=== PATIENT | female | born 1965 | race Caucasian/White ===

== ENCOUNTER → 2017-11-02 | Outpatient (CLI) | payer BC ==
[~2017-11-02] MED LIST: ACYC-1 PO; ACYC-50 PO; AMIT-108 PO; AMOX-559 PO; AMOX500T10 PO; AZIT-1 PO; BUPR-126 PO; BUS5 PO; CIPR-326 PO; CITA-141 PO; CYCL10TA29 PO; DESV50TA9 PO; DIA5 PO; FEXO180T74 PO; FLU60SYR30 IM ONLY; KET10 PO; LEVO750T44 PO; LIDO700A29 TD; LOM PO; LOR5/325 PO; LORA-629 PO; MELO-150 PO; MELO-207 PO; MUP2T TOP; NIC10R INH; NICO1PAT86 TD; ONDA4TAB9 PO; PER PO; PRO25 IV; SULF-198 PO; TAMS0.4C25 PO; TRAM-420 PO; TRAZ-156 PO; VENL150C61 PO; VENL225T5 PO
== END ==
LOC: LAB 11:34
PROVIDERS: ATTEND Emergency Medicine
DX: Z02.9 Encounter for administrative examinations, unspecified (principal)

== ENCOUNTER → 2017-11-02 | Outpatient (CLI) | payer BC ==
[2017-11-02 09:09] LABS: PLATELET COUNT, AUTOMATED 384 K/uL (150-450)
[2017-11-02 09:27] LABS: LDL CHOLESTEROL 95 mg/dl
== END ==
LOC: LAB 08:44
PROVIDERS: ATTEND Emergency Medicine
DX: Z00.00 Encounter for general adult medical examination without abnormal findings (principal)
CPT/HCPCS: 36415; 82040; 82247; 82310; 82374; 82435; 82465; 82565; 82947; 83718; 84075; 84132; 84155; 84295; 84450; 84460; 84478; 84520; 85025

== ENCOUNTER 2017-12-14 19:23 | Emergency (ER) | payer BC ==
[2017-12-14] MEDS ORDERED: KETOROLAC 30 MG/ML VIAL IVP ONE (19:45)
--- NOTE | 2017-12-14 19:45 | ER Report ---
History and Physical Time Seen By MD: 19:29 HPI/ROS CHIEF COMPLAINT: ankle and leg pain HISTORY OF PRESENT ILLNESS: This is a 52 year old female. She twisted her ankle and then started having severe pain in her ankle and into her calf. Significant delayed onset from the injury, now very pronounced even with light touch. Cannot move the ankle much because of pain. Some pain over the medial and lateral malleolus. Some pain up in the thigh and hip as well. Was wearing a boot earlier today, worsened when removed the boot. Has some numbness into the toes. No history of gout, but does have history of arthritis. Allergies: Coded Allergies: codeine (Verified Allergy, Mild, ITCHING, RASH, 11/25/16) morphine (Unverified Allergy, Unknown, 11/25/16) hydromorphone (Verified Adverse Reaction, Mild, HIVES, 11/25/16) Home Meds Active Scripts Ketorolac Tromethamine (KETOROLAC TROMETHAMINE) 10 Mg Tab, 10 MG PO Q6H Y for PAIN, #12 TAB 0 Refills Prov:CONNOR ROWLAND MD 12/14/17 Oxycodone Hcl/Acetaminophen (PERCOCET 5-325 MG TABLET) 1 Each Tablet, 1 EACH PO Q4H Y for PAIN, #12 TAB 0 Refills Prov:CONNOR ROWLAND MD 12/14/17 Cyclobenzaprine Hcl (CYCLOBENZAPRINE HCL) 10 Mg Tablet, 10 MG PO Q8H Y for MUSCLE SPASMS, #20 TAB 0 Refills Prov:CONNOR ROWLAND MD 12/14/17 Venlafaxine Hcl (VENLAFAXINE HCL ER) 225 Mg Tab.er.24, 225 MG PO QDAY, #90 TAB 3 Refills Prov:ANA MUNOZ MD 11/02/17 Acyclovir (ACYCLOVIR) 400 Mg Tablet, 400 MG PO BID, #60 TAB 11 Refills Prov:ANA MUNOZ MD 11/02/17 Amoxicillin 500 Mg Tab (AMOXICILLIN 500 MG TAB) 500 Mg Tablet, 1 TAB PO BID, # 20 TAB Prov:ANA MUNOZ MD 11/02/17 Amitriptyline Hcl (AMITRIPTYLINE HCL) 50 Mg Tablet, 50 MG PO QHS, #30 TAB Take 0.5 to 1 tab at night an hour before bedtime. Discontinue if daytime sleepiness Prov:ANA MUNOZ MD 11/02/17 Bupropion Hcl (WELLBUTRIN SR) 150 Mg Tablet.er, 150 MG PO QDAY, #60 TAB 11 Refills Take 1 daily for 3 days then twice daily after that Prov:ANA MUNOZ MD 11/02/17 Reviewed Nurses Notes: Yes Hx Smoking: Yes (1/2 PACK PER DAY) Smoking Status: Current: Every Day Smoker Exposure to Second Hand Smoke?: Yes Hx Alcohol Use: Yes Constitutional Vital Sign - Last 24 Hours 12/14/17 12/14/17 12/14/17 12/14/17 19:36 19:38 19:41 20:23 Temp 98.4 Pulse 109 103 98 Resp 20 B/P (MAP) 130/96 (107) 130/96 Pulse Ox 100 97 O2 Delivery Room Air 12/14/17 12/14/17 12/14/17 12/14/17 20:30 20:50 21:00 21:05 Pulse 87 B/P (MAP) 111/92 (98) 121/99 (106) Pulse Ox 99 96 12/14/17 12/14/17 12/14/17 12/14/17 21:20 21:30 21:35 21:40 Pulse 89 87 88 B/P (MAP) 133/86 (102) Pulse Ox 94 91 91 Physical Exam General appearance: Patient is alert. Acute distress due to pain. Musculoskeletal: Right ankle shows mild swelling. There is no obvious deformity. No bruising. Medial malleolus is tender to palpation. Lateral malleolus is tender to palpation, but less so than medial. Forefoot is nontender , no tenderness over the head of the fifth metatarsal. No pain with palpation of the calcaneus. Has pain in the calf. Cannot dorsiflex or plantarflex the foot without severe pain. Minimal pain in the knee. Some pain in the hip lateral and anterior. Weight bearing: Weight bearing not tested due to pain. Neurologic: The patient has normal sensation. Active range of motion is intact, but with pain. Cardiovascular: Normal dorsalis pedis and posterior tibialis pulses. Normal capillary refill. Skin: No rash. No skin breakdown. DIFFERENTIAL DIAGNOSIS: After history and physical exam differential diagnosis was considered for ankle injury including sprain, fracture, dislocation and soft tissue injury. Also concerning for possible gout. Because of pain into the leg, will also rule out blood clot. Medical Decision Making Data Points Result Diagram: 12/14/17195012/14/171950 Laboratory Hematology Test 12/14/17 19:51 Red Blood Count 4.58 M/uL (4.17-5.56) Mean Corpuscular Volume 88.0 fL (80.0-96.0) Mean Corpuscular Hemoglobin 31.0 pg (26.0-33.0) Mean Corpuscular Hemoglobin Concent 35.2 g/dL (32.0-36.0) Red Cell Distribution Width 14.4 % (11.5-14.5) Mean Platelet Volume 8.4 fL (7.2-11.1) Neutrophils (%) (Auto) 59.4 % (39.4-72.5) Lymphocytes (%) (Auto) 30.0 % (17.6-49.6) Monocytes (%) (Auto) 8.3 % (4.1-12.4) Eosinophils (%) (Auto) 1.9 % (0.4-6.7) Basophils (%) (Auto) 0.4 % (0.3-1.4) Nucleated RBC Relative Count (auto) 0.0 /100WBC Neutrophils # (Auto) 5.3 K/uL (2.0-7.4) Lymphocytes # (Auto) 2.7 K/uL (1.3-3.6) Monocytes # (Auto) 0.7 K/uL (0.3-1.0) Eosinophils # (Auto) 0.2 K/uL (0.0-0.5) Basophils # (Auto) 0.0 K/uL (0.0-0.1) Nucleated RBC Absolute Count (auto) 0.00 K/uL Erythrocyte Sedimentation Rate 20 mm/HOUR (0-30) Sodium Level 136 mmol/L (137-145) Potassium Level 4.1 mmol/L (3.5-5.0) Chloride Level 100 mmol/L (98-107) Carbon Dioxide Level 25 mmol/L (22-31) Blood Urea Nitrogen 10 mg/dl (7-18) Creatinine 0.90 mg/dl (0.52-1.04) Glomerular Filtration Rate Calc > 60.0 Random Glucose 79 mg/dl (75-110) Uric Acid 4.3 mg/dl (2.5-7.5) Calcium Level 9.5 mg/dl (8.4-10.2) Total Bilirubin 0.3 mg/dl (0.2-1.3) Aspartate Amino Transf (AST/SGOT) 42 U/L (0-35) Alanine Aminotransferase (ALT/SGPT) 33 U/L (0-56) Alkaline Phosphatase 93 U/L (0-126) C-Reactive Protein 1.0 mg/dl (<1.0) Total Protein 7.6 gm/dl (6.3-8.2) Albumin 4.3 g/dl (3.5-5.0) Chemistry Test 12/14/17 19:51 White Blood Count 8.9 k/uL (4.5-11.0) Red Blood Count 4.58 M/uL (4.17-5.56) Hemoglobin 14.2 g/dL (12.0-16.0) Hematocrit 40.3 % (34.0-47.0) Mean Corpuscular Volume 88.0 fL (80.0-96.0) Mean Corpuscular Hemoglobin 31.0 pg (26.0-33.0) Mean Corpuscular Hemoglobin Concent 35.2 g/dL (32.0-36.0) Red Cell Distribution Width 14.4 % (11.5-14.5) Platelet Count 317 K/uL (150-450) Mean Platelet Volume 8.4 fL (7.2-11.1) Neutrophils (%) (Auto) 59.4 % (39.4-72.5) Lymphocytes (%) (Auto) 30.0 % (17.6-49.6) Monocytes (%) (Auto) 8.3 % (4.1-12.4) Eosinophils (%) (Auto) 1.9 % (0.4-6.7) Basophils (%) (Auto) 0.4 % (0.3-1.4) Nucleated RBC Relative Count (auto) 0.0 /100WBC Neutrophils # (Auto) 5.3 K/uL (2.0-7.4) Lymphocytes # (Auto) 2.7 K/uL (1.3-3.6) Monocytes # (Auto) 0.7 K/uL (0.3-1.0) Eosinophils # (Auto) 0.2 K/uL (0.0-0.5) Basophils # (Auto) 0.0 K/uL (0.0-0.1) Nucleated RBC Absolute Count (auto) 0.00 K/uL Erythrocyte Sedimentation Rate 20 mm/HOUR (0-30) Glomerular Filtration Rate Calc > 60.0 Uric Acid 4.3 mg/dl (2.5-7.5) Calcium Level 9.5 mg/dl (8.4-10.2) Total Bilirubin 0.3 mg/dl (0.2-1.3) Aspartate Amino Transf (AST/SGOT) 42 U/L (0-35) Alanine Aminotransferase (ALT/SGPT) 33 U/L (0-56) Alkaline Phosphatase 93 U/L (0-126) C-Reactive Protein 1.0 mg/dl (<1.0) Total Protein 7.6 gm/dl (6.3-8.2) Albumin 4.3 g/dl (3.5-5.0) EKG/Imaging Imaging 3 views right ankle INDICATION: Right ankle pain for 2 days. COMPARISON: None Available FINDINGS: 3 views right ankle. No acute fracture. Previous avulsion off the medial malleolus. No dislocation or bony lesions. No appreciable degenerative changes. Soft tissues show mild swelling. No radiopaque foreign body. Mild callus cases of the distal Achilles tendon. IMPRESSION: 1. No acute osseous abnormality of the right ankle Report Dictated By: Jose Mchugh at 12/14/2017 8:32 PM Venous Doppler ultrasound right lower extremity Indication: Right lower leg pain.. Comparison: None Available Findings: Duplex Doppler and color flow imaging was performed. The common femoral, femoral, and popliteal veins are all patent and compressible with normal Doppler wave forms. There are normal responses to augmentation. The posterior tibial and peroneal veins are patent in the calf. The proximal greater saphenous vein is also normal. Subcutaneous tissues are unremarkable. IMPRESSION: 1. No evidence of deep venous thrombosis of the right lower extremity. Report Dictated By: Jose Mchugh at 12/14/2017 9:21 PM ED Course/Re-evaluation Clinical Indication for ER IV: IV Access ED Course After my initial evaluation, the patient was in significant pain. Started an IV and gave Toradol. Because of medication allergies, gave Percocet 5/325 oral dose. Because of worsening pain, gave Fentanyl 50mcg IV. Pain much improved. Images and ultrasound negative as noted above. Labs unremarkable. Discussed that this appears to be a sprain, but cannot rule out soft tissue tear or ligamentous injury/tear as well. Conservative treatment discussed. See instructions below. Follow-up with [facility] recommended. Decision to Disposition Date: Dec 14, 2017 Decision to Disposition Time: 21:49 Depart Departure Latest Vital Signs Vital Signs Date Time Temp Pulse Resp B/P (MAP) Pulse Ox O2 Delivery O2 Flow Rate FiO2 12/14/17 21:40 88 91 12/14/17 21:30 133/86 (102) 12/14/17 19:41 98.4 20 Room Air Impression: Primary Impression: Ankle sprain Condition: Improved Disposition: HOME OR SELF-CARE Referrals: ANA MUNOZ MD (PCP) New Scripts Ketorolac Tromethamine (KETOROLAC TROMETHAMINE) 10 Mg Tab 10 MG PO Q6H Y for PAIN, #12 TAB 0 Refills Prov: CONNOR ROWLAND MD 12/14/17 Oxycodone Hcl/Acetaminophen (PERCOCET 5-325 MG TABLET) 1 Each Tablet 1 EACH PO Q4H Y for PAIN, #12 TAB 0 Refills Prov: CONNOR ROWLAND MD 12/14/17 Cyclobenzaprine Hcl (CYCLOBENZAPRINE HCL) 10 Mg Tablet 10 MG PO Q8H Y for MUSCLE SPASMS, #20 TAB 0 Refills Prov: CONNOR ROWLAND MD 12/14/17 Patient Instructions: Ankle Sprain (ED) Additional Instructions: Toradol 10mg, one every 6 hours for the next 3 days. Percocet 5/325, one every 4 hours as needed for pain. Flexeril 10mg, one every 8 hours as needed for pain. Apply ice 20 minutes every 1-2 hours while awake. An SHANITA wrap can be used for compression to help reduce swelling. Rest the injured area, keep it elevated while at rest. Begin gentle range of motion exercises. Crutches with increasing weight bearing as the pain decreases. Please call and make a follow-up appointment with [facility]. Off work through the weekend. Problem Qualifiers Primary Impression: Ankle sprain Encounter type: initial encounter Involved ligament of ankle: unspecified ligament Laterality: right Qualified Codes: S93.401A - Sprain of unspecified ligament of right ankle, initial encounter CONNOR ROWLAND MD Dec 14, 2017 19:45
[2017-12-14] MEDS ORDERED: NS(*) 0.9% 1000 ML BAG 1,000 ML IV ONE (19:50)
[2017-12-14 20:03] LABS: PLATELET COUNT, AUTOMATED 317 K/uL (150-450)
[2017-12-14] MEDS ORDERED: fentaNYL CITR 100 MCG/2 ML AMP IVP ONE (20:15)
--- NOTE | 2017-12-14 20:37 | RADIOLOGY IMAGING REPORT ---
FACILITY: [facility] - [place] PATIENT NAME: Jens Norman : 1965 MR: [id number] V: [id number] EXAM DATE: ORDERING PHYSICIAN: CONNOR ROWLAND TECHNOLOGIST: Location: [facility] [place] Patient: Jens Norman : 1965 Visit/Account:[id number] Date of Sevice: 12/14/2017 3 views right ankle INDICATION: Right ankle pain for 2 days. COMPARISON: None Available FINDINGS: 3 views right ankle. No acute fracture. Previous avulsion off the medial malleolus. No dislocation or bony lesions. No appreciable degenerative changes. Soft tissues show mild swelling. No radiopaque fo reign body. Mild callus cases of the distal Achilles tendon. IMPRESSION: 1. No acute osseous abnormality of the right ankle Report Dictated By: Jose Mchugh at 12/14/2017 8:32 PM Report E-Signed By: Jose Mchugh at 12/14/2017 8:34 PM WSN:[id number]
--- NOTE | 2017-12-14 21:27 | RADIOLOGY IMAGING REPORT ---
[facility] PATIENT NAME: Jens Norman : 1965 MR: [id number] V: [id number] EXAM DATE: ORDERING PHYSICIAN: CONNOR ROWLAND TECHNOLOGIST: [place] [facility] [place] Jens [place] : 1965 Visit/Account:[id number] Date of Sevice: 12/14/2017 Venous Doppler ultrasound right lower extremity Indication: Right lower leg pain.. Comparison: None Available Findings: Duplex Doppler and color flow imaging was performed. The common femoral, femoral, and popl iteal veins are all patent and compressible with normal Doppler wave forms. There are normal respons es to augmentation. The posterior tibial and peroneal veins are patent in the calf. The proximal greater saphenous vein i s also normal. Subcutaneous tissues are unremarkable. IMPRESSION: 1. No evidence of deep venous thrombosis of the right lower extremity. Report Dictated By: Jose Mchugh at 12/14/2017 9:21 PM Report E-Signed By: Jose Mchugh at 12/14/2017 9:23 PM WSN:[id number]
[2017-12-14 21:30] VITALS: BP 133/86
[2017-12-14] MEDS ORDERED: KETOROLAC TROM 10 MG TAB TH PO ONE (21:50)
[2017-12-14] MEDS ORDERED: oxyCODONE/ACETAMIN 5/325MG TH 2 TAB/BOTTLE PO ONE (21:50)
[2017-12-14] MEDS ORDERED: CYCLOBENZAPRINE HCL 10 MG TH PO ONE (21:50)
[2017-12-14] MEDS ORDERED: KET10 PO (21:51)
[2017-12-14] MEDS ORDERED: CYCL10TA29 PO (21:51)
[2017-12-14] MEDS ORDERED: OXYC-865 PO (21:51)
[2017-12-15] MEDS ORDERED: AMIT-108 PO (12:16)
== END 2017-12-14 22:09 | disposition home or self-care (01) ==
LOC: ER 19:54
DX: S93.401A Sprain of unspecified ligament of right ankle, initial encounter (principal)
CPT/HCPCS: 73610; 84550; 85025; 85651; 86140; 93971; 96361; 96374; 96375; 99284; J1885; J3010; J7030; 82040; 82247; 82310; 82374; 82435; 82565; 82947; 84075; 84132; 84155; 84295; 84450; 84460; 84520

== ENCOUNTER → 2018-01-30 | Outpatient (CLI) | payer BC ==
[~2018-01-30] MED LIST changes: +OXYC-865 PO; +ZOLP-1 PO
--- NOTE | 2018-01-30 16:24 | RADIOLOGY IMAGING REPORT ---
FACILITY: [facility] PATIENT NAME: Jens Norman : 1965 MR: [id number] V: [id number] EXAM DATE: ORDERING PHYSICIAN: MOHAMUD RUIZ TECHNOLOGIST: Location: [facility] Patient: Jens Norman : 1965 Visit/Account:[id number] Date of Sevice: 01/30/2018 MRI right shoulder Indication: Right shoulder pain for one year Comparison: None available. Technique: Multiplanar multisequence MR images were obtained through the right shoulder. Findings: Rotator cuff: There is mild intrasubstance tearing of the distal supraspinatus. There is also high-grade bursal fatuma face tearing of distal anterior infraspinatus fibers and mild to moderate intrasubstance tearing infr aspinatus. Teres minor is intact. There is tendinopathy and mild partial tearing of the superior fibe rs of the subscapularis. Biceps tendon: There is mild tendinopathy of the intra-articular portion of biceps tendon. AC joint and acromion: Os acromiale noted. Lateral downsloping acromion seen which can predispose to impingement. There are also moderate to severe AC joint degenerative changes. Labrum and capsular ligaments: Nondisplaced degenerative tearing of the superior labrum seen without para labral cyst formation or l abral detachment. Capsular ligaments are intact with no evidence of focal abnormality. Bones and cartilage: No acute fracture or dislocation. No focal chondral defect glenohumeral joint cartilage.. Effusion, bursitis: Small amount of fluid seen within the glenohumeral joint. Mild amount of fluid seen within the subacromial/subcutaneous bursa. IMPRESSION: 1. 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 Mild lateral downsloping acromion seen which can predispose to impingement. 2. Mild subacromial/subcutaneous bursitis. 3. High-grade bursal surface tearing distal anterior infraspinatus fibers. Report Dictated By: John Muniz MD at 01/30/2018 4:05 PM Report E-Signed By: John Muniz MD at 01/30/2018 4:20 PM WSN:[id number]
== END ==
LOC: MRI 01:13
PROVIDERS: ATTEND Pain Medicine Pain Medicine
DX: M19.011 Primary osteoarthritis, right shoulder (principal); M71.9 Bursopathy, unspecified; S46.811A Strain of other muscles, fascia and tendons at shoulder and upper arm level, right arm, initial encounter

== ENCOUNTER 2018-02-16 19:40 | Emergency (ER) | payer BC ==
--- NOTE | 2018-02-16 19:54 | ER Report ---
History and Physical Time Seen By MD: 19:54 HPI/ROS CHIEF COMPLAINT: Headache, nausea, vomiting HISTORY OF PRESENT ILLNESS: 52-year-old female patient presents to emergency room with complaint of headache, nausea and vomiting. Patient states that she was getting ready to go camping this weekend when out of the blue she started having significant amounts of pain to her head. She states it felt like it started in her neck and seemed to radiate up to her head. She states she does have a history of a problems with disc in her neck. She states that she does have tramadol which she takes for that. Patient states that the pain came on so suddenly and she started vomiting that she's not been able to take any medication for this. She denies any loss of consciousness, she denies any injury. REVIEW OF SYSTEMS: Respiratory: No cough, no dyspnea. Cardiovascular: No chest pain, no palpitations. Gastrointestinal: As noted above Musculoskeletal: As noted above Allergies: Coded Allergies: codeine (Verified Allergy, Mild, ITCHING, RASH, 02/16/18) morphine (Unverified Allergy, Unknown, 02/16/18) hydromorphone (Verified Adverse Reaction, Mild, HIVES, 02/16/18) Home Meds Active Scripts Cyclobenzaprine Hcl (CYCLOBENZAPRINE HCL) 10 Mg Tablet, 10 MG PO TID Y for MUSCLE SPASMS, #15 TAB Prov:BJORN FERNANDEZP 02/16/18 Ketorolac Tromethamine (KETOROLAC TROMETHAMINE) 10 Mg Tab, 10 MG PO Q6H, #20 TAB Prov:BJORN FERNANDEZ 02/16/18 Zolpidem Tartrate (AMBIEN) 5 Mg Tablet, 1-2 TAB PO QHS, #30 TAB Take 1-2 tabs up to three times a week as needed Prov:ANA MUNOZ MD 01/09/18 Ketorolac Tromethamine (KETOROLAC TROMETHAMINE) 10 Mg Tab, 10 MG PO Q6H Y for PAIN, #12 TAB 0 Refills Prov:ANA MUNOZ MD 01/09/18 Cyclobenzaprine Hcl (CYCLOBENZAPRINE HCL) 10 Mg Tablet, 10 MG PO Q8H Y for MUSCLE SPASMS, #20 TAB 0 Refills Prov:ANA MUNOZ MD 01/09/18 Venlafaxine Hcl (VENLAFAXINE HCL ER) 225 Mg Tab.er.24, 225 MG PO QDAY, #90 TAB 3 Refills Prov:ANA MUNOZ MD 11/02/17 Acyclovir (ACYCLOVIR) 400 Mg Tablet, 400 MG PO BID, #60 TAB 11 Refills Prov:ANA MUNOZ MD 11/02/17 Past Medical/Surgical History Patient has a past medical history of irregular heartbeat, stomach ulcer, frequent UTI, neck pain, conjunctivitis, ear infections, alcohol use, depression. Patient has surgical history of hysterectomy, carpal tunnel release, left ring finger amputation, right rotator cuff surgery, spinal fusion, tonsillectomy. Hx Smoking: Yes (1/2 PACK PER DAY) Smoking Status: Current: Every Day Smoker Exposure to Second Hand Smoke?: Yes Hx Alcohol Use: Yes Constitutional Vital Sign - Last 24 Hours 02/16/18 02/16/18 02/16/18 02/16/18 19:40 19:49 19:52 20:10 Temp 97.9 Pulse ??? 89 81 Resp 16 B/P (MAP) 131/90 (104) 131/90 Pulse Ox 98 98 O2 Delivery Room Air 02/16/18 02/16/18 02/16/18 02/16/18 20:23 20:30 20:40 21:00 Pulse 76 B/P (MAP) 121/92 (102) 119/87 (98) 118/93 (101) Pulse Ox 91 02/16/18 02/16/18 02/16/18 21:10 21:30 22:23 Pulse 76 78 85 Resp 16 B/P (MAP) 113/84 (94) 118/72 (87) Pulse Ox 96 94 92 O2 Delivery Room Air Physical Exam General Appearance: The patient is alert, has no immediate need for airway protection and no current signs of toxicity. Eyes: Pupils equal and round no injection. Extraocular movements intact. ENT: Tympanic membranes are pearly-jennings, auditory canals are patent, mucus mucous membranes are moist. Respiratory: Chest is non tender, lungs are clear to auscultation. Cardiac: regular rate and rhythm Gastrointestinal: Abdomen is soft and non tender, no masses, bowel sounds normal. Musculoskeletal: Neck: Neck is supple and non tender. Extremities have full range of motion and are non tender. Skin: No rashes or lesions. Neuro: Patient is alert and oriented 4, cranial nerves II through XII grossly intact. DIFFERENTIAL DIAGNOSIS: After history and physical exam differential diagnosis was considered for headache including but not limited to subarachnoid hemorrhage , migraine headache, tension headache and infectious causes such as meningitis, pharyngitis and sinusitis. Medical Decision Making Data Points Result Diagram: 02/16/18202702/16/182027 Laboratory Hematology Test 02/16/18 20:28 Red Blood Count 4.65 M/uL (4.17-5.56) Mean Corpuscular Volume 87.3 fL (80.0-96.0) Mean Corpuscular Hemoglobin 31.0 pg (26.0-33.0) Mean Corpuscular Hemoglobin Concent 35.5 g/dL (32.0-36.0) Red Cell Distribution Width 13.7 % (11.5-14.5) Mean Platelet Volume 8.2 fL (7.2-11.1) Neutrophils (%) (Auto) 65.8 % (39.4-72.5) Lymphocytes (%) (Auto) 25.8 % (17.6-49.6) Monocytes (%) (Auto) 6.5 % (4.1-12.4) Eosinophils (%) (Auto) 1.2 % (0.4-6.7) Basophils (%) (Auto) 0.7 % (0.3-1.4) Nucleated RBC Relative Count (auto) 0.0 /100WBC Neutrophils # (Auto) 6.3 K/uL (2.0-7.4) Lymphocytes # (Auto) 2.5 K/uL (1.3-3.6) Monocytes # (Auto) 0.6 K/uL (0.3-1.0) Eosinophils # (Auto) 0.1 K/uL (0.0-0.5) Basophils # (Auto) 0.1 K/uL (0.0-0.1) Nucleated RBC Absolute Count (auto) 0.00 K/uL Erythrocyte Sedimentation Rate 10 mm/HOUR (0-30) Prothrombin Time 13.6 seconds (12.0-14.4) Prothromb Time International Ratio 1.04 Activated Partial Thromboplast Time 33 seconds (23-35) Sodium Level 133 mmol/L (137-145) Potassium Level 3.4 mmol/L (3.5-5.0) Chloride Level 101 mmol/L (98-107) Carbon Dioxide Level 20 mmol/L (22-31) Blood Urea Nitrogen 14 mg/dl (7-18) Creatinine 0.80 mg/dl (0.52-1.04) Glomerular Filtration Rate Calc > 60.0 Random Glucose 103 mg/dl (75-110) Calcium Level 9.8 mg/dl (8.4-10.2) Total Bilirubin 0.6 mg/dl (0.2-1.3) Aspartate Amino Transf (AST/SGOT) 37 U/L (0-35) Alanine Aminotransferase (ALT/SGPT) 27 U/L (0-56) Alkaline Phosphatase 91 U/L (0-126) C-Reactive Protein < 0.5 mg/dl (<1.0) Total Protein 7.5 gm/dl (6.3-8.2) Albumin 4.7 g/dl (3.5-5.0) Chemistry Test 02/16/18 20:28 White Blood Count 9.5 k/uL (4.5-11.0) Red Blood Count 4.65 M/uL (4.17-5.56) Hemoglobin 14.4 g/dL (12.0-16.0) Hematocrit 40.6 % (34.0-47.0) Mean Corpuscular Volume 87.3 fL (80.0-96.0) Mean Corpuscular Hemoglobin 31.0 pg (26.0-33.0) Mean Corpuscular Hemoglobin Concent 35.5 g/dL (32.0-36.0) Red Cell Distribution Width 13.7 % (11.5-14.5) Platelet Count 293 K/uL (150-450) Mean Platelet Volume 8.2 fL (7.2-11.1) Neutrophils (%) (Auto) 65.8 % (39.4-72.5) Lymphocytes (%) (Auto) 25.8 % (17.6-49.6) Monocytes (%) (Auto) 6.5 % (4.1-12.4) Eosinophils (%) (Auto) 1.2 % (0.4-6.7) Basophils (%) (Auto) 0.7 % (0.3-1.4) Nucleated RBC Relative Count (auto) 0.0 /100WBC Neutrophils # (Auto) 6.3 K/uL (2.0-7.4) Lymphocytes # (Auto) 2.5 K/uL (1.3-3.6) Monocytes # (Auto) 0.6 K/uL (0.3-1.0) Eosinophils # (Auto) 0.1 K/uL (0.0-0.5) Basophils # (Auto) 0.1 K/uL (0.0-0.1) Nucleated RBC Absolute Count (auto) 0.00 K/uL Erythrocyte Sedimentation Rate 10 mm/HOUR (0-30) Prothrombin Time 13.6 seconds (12.0-14.4) Prothromb Time International Ratio 1.04 Activated Partial Thromboplast Time 33 seconds (23-35) Glomerular Filtration Rate Calc > 60.0 Calcium Level 9.8 mg/dl (8.4-10.2) Total Bilirubin 0.6 mg/dl (0.2-1.3) Aspartate Amino Transf (AST/SGOT) 37 U/L (0-35) Alanine Aminotransferase (ALT/SGPT) 27 U/L (0-56) Alkaline Phosphatase 91 U/L (0-126) C-Reactive Protein < 0.5 mg/dl (<1.0) Total Protein 7.5 gm/dl (6.3-8.2) Albumin 4.7 g/dl (3.5-5.0) Coagulation Test 02/16/18 20:28 Prothrombin Time 13.6 seconds Prothromb Time International Ratio 1.04 Activated Partial Thromboplast Time 33 seconds EKG/Imaging Imaging EXAMINATION: CT head without IV contrast HISTORY: Headache. TECHNIQUE: Axial CT images of the head were obtained from the vertex to the skull base without IV contrast, with coronal and sagittal 2D reconstructed images. One of the following dose optimization techniques was utilized in the performance of this exam: Automated exposure control; adjustment of the mA and/ or kV according to the patient's size; or use of an iterative reconstruction technique. Specific details can be referenced in the facility's radiology CT exam operational policy. COMPARISON: None. FINDINGS: The intracranial contents are unremarkable. No CT evidence of intracranial hemorrhage, mass lesion, or acute infarct. No midline shift or extra-axial fluid collections. Jennings-white differentiation is maintained. The calvarium is intact. The visualized paranasal sinuses and mastoid air cells are unopacified. IMPRESSION: Unremarkable noncontrast head CT. Report Dictated By: Caleb Walker MD at 02/16/2018 9:14 PM Report E-Signed By: Caleb Walker MD at 02/16/2018 9:16 PM ED Course/Re-evaluation ED Course Patient was admitted to exam room, history and physical were obtained. Differential diagnoses were considered. On examination patient was alert and oriented 4, cranial nerves II through XII grossly intact. A CBC, CMP, CRP, ESR , CT scan of the head were done. Lab results were unremarkable, patient did receive a liter of normal saline, she received 50 g of fentanyl, [address] scan of the head was normal. Patient states she is still having significant amounts of pain, although it was improved. She received 15 mg of Toradol, 25 mg of Benadryl and 30 mg of Norflex. On reevaluation patient states she's feeling significantly better. She states her headache is down 25 out of 10. She states she is ready to home at this time. We'll go ahead and discharge patient home at this time. Patient verbalized understanding and agreement with plan. Decision to Disposition Date: Feb 16, 2018 Decision to Disposition Time: 22:20 Depart Departure Latest Vital Signs Vital Signs Date Time Temp Pulse Resp B/P (MAP) Pulse Ox O2 Delivery O2 Flow Rate FiO2 02/16/18 22:23 85 16 118/72 (87) 92 Room Air 02/16/18 19:52 97.9 Impression: Primary Impression: Headache Condition: Improved Disposition: HOME OR SELF-CARE Referrals: ANA MUNOZ MD (PCP) New Scripts Cyclobenzaprine Hcl (CYCLOBENZAPRINE HCL) 10 Mg Tablet 10 MG PO TID Y for MUSCLE SPASMS, #15 TAB Prov: BJORN FERNANDEZ 02/16/18 Ketorolac Tromethamine (KETOROLAC TROMETHAMINE) 10 Mg Tab 10 MG PO Q6H, #20 TAB Prov: BJORN FERNANDEZ 02/16/18 Patient Instructions: Acute Headache (ED) Additional Instructions: Increase fluid intake. Get plenty of rest. Limit activity by pain. Take your medication as prescribed. Follow up with your primary care provider in the next week. Return to the ER if condition worsens. Problem Qualifiers Primary Impression: Headache Headache type: tension-type Headache chronicity pattern: acute headache Intractability: not intractable Qualified Codes: G44.209 - Tension-type headache, unspecified, not intractable BJORN FERNANDEZ Feb 16, 2018 19:54
[2018-02-16] MEDS ORDERED: NS(*) 0.9% 1000 ML BAG 1,000 ML IV ONE (20:02)
[2018-02-16] MEDS ORDERED: fentaNYL CITR 100 MCG/2 ML AMP IVP ONE (20:05)
[2018-02-16] MEDS ORDERED: ONDANSETRON 4 MG/2 ML VIAL IVP ONE (20:05)
[2018-02-16 20:34] LABS: PLATELET COUNT, AUTOMATED 293 K/uL (150-450)
[2018-02-16 20:45] LABS: INR 1.04
--- NOTE | 2018-02-16 21:19 | RADIOLOGY IMAGING REPORT ---
FACILITY: [facility] PATIENT NAME: Jens Norman : 1965 MR: [id number] V: [id number] EXAM DATE: ORDERING PHYSICIAN: BJORN FERNANDEZ TECHNOLOGIST: Location: [facility] - [place] Patient: Jens Norman : 1965 Visit/Account:[id number] Date of Sevice: 02/16/2018 EXAMINATION: CT head without IV contrast HISTORY: Headache. TECHNIQUE: Axial CT images of the head were obtained from the vertex to the skull base without IV c ontrast, with coronal and sagittal 2D reconstructed images. One of the following dose optimization techniques was utilized in the performance of this exam: Autom ated exposure control; adjustment of the mA and/or kV according to the patient's size; or use of an i terative reconstruction technique. Specific details can be referenced in the facility's radiology C T exam operational policy. COMPARISON: None. FINDINGS: The intracranial contents are unremarkable. No CT evidence of intracranial hemorrhage, mass lesion, or acute infarct. No midline shift or extra-axial fluid collections. Jennings-white differentiation is maintained. The calvarium is intact. The visualized paranasal sinuses and mastoid air cells are unopacified. IMPRESSION: Unremarkable noncontrast head CT. Report Dictated By: Caleb Walker MD at 02/16/2018 9:14 PM Report E-Signed By: Caleb Walker MD at 02/16/2018 9:16 PM WSN:[id number]
[2018-02-16] MEDS ORDERED: KETOROLAC 15 MG/ML VIAL IVP ONE (21:25)
[2018-02-16] MEDS ORDERED: ORPHENADRINE 60MG/2ML INJ IVP ONE (21:25)
[2018-02-16] MEDS ORDERED: diphenhydrAMINE 50 MG/ML VIAL IVP ONE (21:25)
[2018-02-16] MEDS ORDERED: CYCL10TA29 PO (22:19)
[2018-02-16] MEDS ORDERED: KET10 PO (22:19)
[2018-02-16] MEDS ORDERED: KETOROLAC TROM 10 MG TAB TH PO ONE (22:20)
[2018-02-16] MEDS ORDERED: CYCLOBENZAPRINE HCL 10 MG TH PO ONE (22:20)
[2018-02-16 22:23] VITALS: BP 118/72
[2018-02-19] MEDS ORDERED: ZOLP-1 PO ×2 (08:56→08:57)
== END 2018-02-16 22:24 | disposition home or self-care (01) ==
LOC: ER 20:07
DX: G44.209 Tension-type headache, unspecified, not intractable (principal); F17.210 Nicotine dependence, cigarettes, uncomplicated
CPT/HCPCS: 70450; 85025; 85610; 85651; 85730; 86140; 96361; 96374; 96375; 99284; J1200; J1885; J2360; J2405; J3010; J7030; 82040; 82247; 82310; 82374; 82435; 82565; 82947; 84075; 84132; 84155; 84295; 84450; 84460; 84520

== ENCOUNTER → 2018-04-05 | Outpatient (CLI) | payer BC, OTHER ==
[~2018-04-05] MED LIST changes: -TRAZ-156 PO; +TRAZ50TA34 PO
--- NOTE | 2018-04-05 16:23 | RADIOLOGY IMAGING REPORT ---
FACILITY: [facility] - [place] PATIENT NAME: TRACIE RAMÍREZ : [id number] MR: [id number] V: [id number] EXAM DATE: [id number] ORDERING PHYSICIAN: ANA MUNOZ TECHNOLOGIST: Tamera Urbina PROCEDURE:BILATERAL DIGITAL SCREENING MAMMOGRAM WITH CAD ASSISTED INTERPRETATION & 3D TOMOSYNTHESIS COMPARISON:Prior mammograms 02/22/16, 11/30/06. INDICATIONS:screening FINDINGS: Breast parenchyma is predominantly fatty replaced. There are no mammographic findings concerning for malignancy. No significant interval change. DIAGNOSTIC CATEGORY 1--NEGATIVE. RECOMMENDATIONS: ROUTINE MAMMOGRAM AND CLINICAL EVALUATION IN 1 YEAR. IMPRESSION: BIRADS 1: Negative. Dictated by: Jose Carlos Ambrocio on 04/05/2018 at 16:13 Transcribed by: TING on 04/05/2018 at 16:21 Approved by: Jose Carlos Ambrocio on 04/05/2018 at 16:23 [facility]
== END ==
LOC: MAMO 01:57
PROVIDERS: ATTEND Emergency Medicine
DX: Z12.31 Encounter for screening mammogram for malignant neoplasm of breast (principal)
CPT/HCPCS: 77063; 77067

== ENCOUNTER 2018-10-23 14:24 | Emergency (ER) | payer OTHER, BC ==
[~2018-10-23 14:24] MED LIST changes: +MIRT-17 PO; +MIRT-22 PO; +VARE1TAB3 PO; +VARE1TAB4 PO
--- NOTE | 2018-10-23 14:48 | ER Report ---
History and Physical Time Seen By : 14:48 HPI/ROS CHIEF COMPLAINT: Neck pain HISTORY OF PRESENT ILLNESS: 53-year-old female patient presents to emergency room with complaint of neck pain. Patient states that she has history of disc injury in her neck. She states this occurred when she slipped going down the stairs of a school bus. She states that she has been having problems with that since then. She states that this past weekend that she had driven to [place] for the school district. She states that it was an overnight trip and she did stay in a hotel. She states when she returned on Monday that she was having such significant neck pain that she is not able to tolerate. She states she's been taking ibuprofen 800 mg with no improvement. She states that she does not have any numbness or tingling in her arms. She states the pain has become so significant that she just couldn't tolerate it anymore and came in for evaluation. Patient denies any recent injury to the neck, she denies any falls. REVIEW OF SYSTEMS: Respiratory: No cough, no dyspnea. Cardiovascular: No chest pain, no palpitations. Gastrointestinal: No vomiting, no abdominal pain. Musculoskeletal: As noted above Allergies: Coded Allergies: codeine (Verified Allergy, Mild, ITCHING, RASH, 10/23/18) morphine (Unverified Allergy, Unknown, 10/23/18) hydromorphone (Verified Adverse Reaction, Mild, HIVES, 10/23/18) Home Meds Active Scripts Orphenadrine Citrate (ORPHENADRINE CITRATE) 100 Mg Tabsr, 100 MG PO BID PRN for MUSCLE SPASMS, #14 TAB.SR Prov:BJORN FERNANDEZ 10/23/18 Ketorolac Tromethamine (KETOROLAC TROMETHAMINE) 10 Mg Tab, 10 MG PO Q6H, #20 TAB Prov:BJORN FERNANDEZ 10/23/18 Oxycodone Hcl/Acetaminophen (PERCOCET 5-325 MG TABLET) 1 Each Tablet, 1 EACH PO Q4-6H PRN for PAIN, #20 TAB Prov:BJORN FERNANDEZ 10/23/18 Mirtazapine (MIRTAZAPINE) 15 Mg Tablet, 0.5 MG PO QHS, #90 TAB 0 Refills Prov:ANA MUNOZ MD 07/03/18 Varenicline Tartrate (CHANTIX) 1 Mg Tablet, 1 MG PO BID, #1 PACK 10 Refills Prov:ANA MUNOZ MD 06/14/18 Varenicline Tartrate (CHANTIX) 1 Each Tab.ds.pk, 1 EACH PO DIRECTED, #1 PACK Prov:ANA MUNOZ MD 06/14/18 Amoxicillin/Pot Clav 875-125 Mg Tab (AUGMENTIN 875-125 TABLET) 1 Each Tablet, 1 TAB PO Q12H, #20 TAB Prov:ANA MUNOZ MD 06/14/18 Venlafaxine Hcl (VENLAFAXINE HCL ER) 225 Mg Tab.er.24, 225 MG PO QDAY, #90 TAB 3 Refills Prov:ANA MUNOZ MD 11/02/17 Acyclovir (ACYCLOVIR) 400 Mg Tablet, 400 MG PO BID, #60 TAB 11 Refills Prov:ANA MUNOZ MD 11/02/17 Past Medical/Surgical History Patient has a past medical history of irregular heartbeat, ulcer, back pain, neck pain, conjunctivitis, ear infections, alcohol use, depression. Patient has a surgical history of hysterectomy, left ring finger amputation, car pal tunnel, shoulder surgery, spinal fusion, tonsillectomy. Reviewed Nurses Notes: Yes Hx Smoking: Yes (1/2 PACK PER DAY) Smoking Status: Current: Every Day Smoker Exposure to Second Hand Smoke?: Yes Hx Alcohol Use: Yes Constitutional Vital Sign - Last 24 Hours 10/23/18 10/23/18 10/23/18 10/23/18 14:46 14:47 14:54 15:00 Temp 97.9 Pulse 110 106 Resp 20 B/P (MAP) 110/88 (95) 110/88 35/21 (26) Pulse Ox 96 99 O2 Delivery Room Air 10/23/18 10/23/18 10/23/18 10/23/18 15:15 15:24 15:54 16:00 Pulse 93 B/P (MAP) 114/98 (103) 113/88 (96) Pulse Ox 97 96 O2 Delivery Non-Rebreather O2 Flow Rate 15 10/23/18 10/23/18 10/23/18 16:05 16:30 16:35 Pulse 83 81 B/P (MAP) 108/85 (93) Pulse Ox 96 96 Physical Exam General Appearance: The patient is alert, has no immediate need for airway protection and no current signs of toxicity. Respiratory: Chest is non tender, lungs are clear to auscultation. Cardiac: regular rate and rhythm Gastrointestinal: Abdomen is soft and non tender, no masses, bowel sounds normal. Musculoskeletal: Neck: Neck is tight with muscle spasms and tender to palpation. Extremities have full range of motion and are non tender. Skin: No rashes or lesions. DIFFERENTIAL DIAGNOSIS: After history and physical exam differential diagnosis was considered for muscle spasms, inflammatory process, acute flare of chronic neck pain Medical Decision Making EKG/Imaging Imaging Exam type: CERVICAL SPINE MIN 4 VIEW History: Neck pain x2 years, flared up October 20, 2018 after long car ride Comparison: November 25, 2016. Findings: There is straightening of normal cervical doses which can be seen with muscle spasm. There is no evidence of acute fractures or subluxations. There is moderate disc space narrowing at C6-7 with small anterior osteophytes degenerative facet joint changes are seen bilaterally from C4 through C7. There is no evidence of prevertebral soft tissue swelling. IMPRESSION: 1. Straightening of the normal cervical doses which can be seen with muscle spasm Multilevel spondylotic changes most prominent at C6-7 Report Dictated By: Teresa Javed MD at 10/23/2018 3:59 PM Report E-Signed By: Teresa Javed MD at 10/23/2018 4:01 PM ED Course/Re-evaluation ED Course Patient was admitted to an exam room, history and physical were obtained. Differential diagnoses were considered. On examination lungs are clear, heart is regular, abdomen is soft nontender. Patient does have tenderness to the neck, she has tightness to muscles on both sides. With patient having chronic neck injury and having worsening pain we will go ahead and do an x-ray. The x-ray was negative. An IV was started, patient received 15 mg of Toradol, 30 mg of Norflex, 50 g of fentanyl. I discussed the findings of the x-ray with the patient. Patient originally stated that her pain was greater than a 10 out of 10. When I discussed the findings and after she received the medication. I asked the patient again how her pain was. She states the pain was down to an 8 out of 10. She states that is where she normally lives. As a result of that we will go ahead and discharge patient home at this time. We will go ahead and have her continue with Norflex, 100 mg twice a day, Percocet 5/325 one tab by mouth every 4-6 hours as needed for pain and Toradol 10 mg 4 times a day. Patient is to follow-up with her orthopedist. She states she does have an appointment already scheduled. She is to limit her to by pain. Patient verbalized understanding and agreement with plan. Decision to Disposition Date: Oct 23, 2018 Decision to Disposition Time: 16:48 Depart Departure Latest Vital Signs Vital Signs Date Time Temp Pulse Resp B/P (MAP) Pulse Ox O2 Delivery O2 Flow Rate FiO2 10/23/18 16:35 81 96 10/23/18 16:30 108/85 (93) 10/23/18 15:54 Non-Rebreather 15 10/23/18 14:47 97.9 20 Impression: Primary Impression: Neck pain Additional Impression: Muscle spasms of neck Condition: Improved Disposition: HOME OR SELF-CARE Referrals: ANA MUNOZ MD (PCP) New Scripts Orphenadrine Citrate (ORPHENADRINE CITRATE) 100 Mg Tabsr 100 MG PO BID PRN for MUSCLE SPASMS, #14 TAB.SR Prov: BJORN FERNANDEZ 10/23/18 Ketorolac Tromethamine (KETOROLAC TROMETHAMINE) 10 Mg Tab 10 MG PO Q6H, #20 TAB Prov: BJORN FERNANDEZ 10/23/18 Oxycodone Hcl/Acetaminophen (PERCOCET 5-325 MG TABLET) 1 Each Tablet 1 EACH PO Q4-6H PRN for PAIN, #20 TAB Prov: BJORN FERNANDEZ 10/23/18 Patient Instructions: Muscle Spasm (ED) Additional Instructions: Limit activity by pain. Apply heat to the neck. Get plenty of rest. Take the medications as prescribed. Follow up with your orthopedic surgeon. Return to the ER if condition worsens. Problem Qualifiers BJORN FERNANDEZ Oct 23, 2018 14:48
[2018-10-23] MEDS ORDERED: ORPHENADRINE 60MG/2ML INJ IVP ONE (15:00)
[2018-10-23] MEDS ORDERED: fentaNYL CITR 100 MCG/2 ML AMP IVP ONE (15:00)
[2018-10-23] MEDS ORDERED: KETOROLAC 15 MG/ML VIAL IVP ONE (15:00)
--- NOTE | 2018-10-23 16:06 | RADIOLOGY IMAGING REPORT ---
FACILITY: [facility] PATIENT NAME: Jens Norman : 1965 MR: [id number] V: [id number] EXAM DATE: ORDERING PHYSICIAN: BJORN FERNANDEZ TECHNOLOGIST: Location: [facility] - [place] Patient: Jens Norman : 1965 Visit/Account:[id number] Date of Sevice: 10/23/2018 Exam type: CERVICAL SPINE MIN 4 VIEW History: Neck pain x2 years, flared up October 20, 2018 after long car ride Comparison: November 25, 2016. Findings: There is straightening of normal cervical doses which can be seen with muscle spasm. There is no lakisha dence of acute fractures or subluxations. There is moderate disc space narrowing at C6-7 with small anterior osteophytes degenerative facet joint changes are seen bilaterally from C4 through C7. There is no evidence of prevertebral soft tissue swelling. IMPRESSION: 1. Straightening of the normal cervical doses which can be seen with muscle spasm Multilevel spondylotic changes most prominent at C6-7 Report Dictated By: Teresa Javed MD at 10/23/2018 3:59 PM Report E-Signed By: Teresa Javed MD at 10/23/2018 4:01 PM WSN:[id number]
[2018-10-23 16:30] VITALS: BP 108/85
[2018-10-23] MEDS ORDERED: OXYC-865 PO (16:46)
[2018-10-23] MEDS ORDERED: ORP100 PO (16:46)
[2018-10-23] MEDS ORDERED: KET10 PO (16:46)
== END 2018-10-23 16:59 | disposition home or self-care (01) ==
LOC: ER 15:04
DX: M62.838 Other muscle spasm (principal)
CPT/HCPCS: 72050; 96374; 96375; 99284; J1885; J2360; J3010

== ENCOUNTER → 2019-03-25 | Outpatient (CLI) | payer BC ==
[~2019-03-25] MED LIST changes: +ORP100 PO; -TRAZ50TA34 PO; +TRAZ50TA52 PO
[2019-03-25 13:09] LABS: PLATELET COUNT, AUTOMATED 371 K/uL (150-450)
[2019-03-25 13:33] LABS: LDL CHOLESTEROL 157 mg/dl
== END ==
LOC: LAB 12:42
PROVIDERS: ATTEND Emergency Medicine
DX: M54.9 Dorsalgia, unspecified (principal)
CPT/HCPCS: 36415; 82040; 82247; 82306; 82310; 82374; 82435; 82465; 82565; 82947; 83718; 84075; 84132; 84155; 84295; 84450; 84460; 84478; 84520; 85025

== ENCOUNTER → 2019-04-15 | Outpatient (CLI) | payer BC ==
[~2019-04-15] MED LIST changes: +PHEN-578 PO
== END ==
LOC: LAB 11:10
PROVIDERS: ATTEND Emergency Medicine
DX: R35.0 Frequency of micturition (principal); N39.0 Urinary tract infection, site not specified
CPT/HCPCS: 81001; 87088